=== PATIENT | male | born 1950 | race Caucasian/White ===

== ENCOUNTER 2020-12-25 09:19 | Emergency (ER) | payer BC ==
[~2020-12-25] VITALS: Ht 175.3 cm; Wt 78.1 kg
[~2020-12-25 09:19] MED LIST: ASPIRIN325 MG PO; CLOPIDOGREL75 MG PO; HUMALOG MI100 UNIT/2 SQ; LISINOPRIL10 MG PO; NOVOLOG MI100 UNIT/1 SQ; SIMVASTATIN80 MG PO; TRICOR145 MG PO; ULTRAM50 MG PO
[2020-12-25] MEDS ORDERED: SODIUM CHLORIDE 0.9% 1000ML 1,000 ML IV STA (09:24)
[2020-12-25] MEDS ORDERED: SODIUM CHLORIDE 0.9% 1000ML 1,000 ML ONE (09:50)
== END 2020-12-25 10:43 | disposition home or self-care (01) ==
LOC: FSED 09:27
DX: E87.5 Hyperkalemia (principal); N17.9 Acute kidney failure, unspecified; R94.31 Abnormal electrocardiogram [ECG] [EKG]; I25.10 Atherosclerotic heart disease of native coronary artery without angina pectoris; E78.00 Pure hypercholesterolemia, unspecified; I25.2 Old myocardial infarction
CPT/HCPCS: 80053; 85025; 93005; 99284; J7030

== ENCOUNTER → 2023-04-10 | Day surgery (SDC) | payer BC ==
[2023-04-10] VITALS (14 sets, daily range): BP systolic 127–160; BP diastolic 62–78; PULSE 46–56; RESP 11–48; TEMP 98.2; O2SAT 94–98
[~2023-04-10] VITALS: Ht 175.3 cm; Wt 77.1 kg
[~2023-04-10] MED LIST changes: +ALPRAZOLAM 0.5 MG TAB ONE; +ASPIRIN 325 MG TAB ONE; +ASPIRIN81 MG PO; +BIVALRIUDIN 250 MG/VIAL VIAL IV ONE; +DIPHENHYDRAMINE HCL 25 MG CAP ONE; +FENTANYL CITRATE/PF 100MCG/2 ML INJ ONE; +FLOMAX0.4 MG PO; +HEPARIN SOD (PORCINE) 1000 UNIT/ML 30ML ONE; +HEPARIN SOD/SOD CHLORIDE 2,000 ML ONE; +IOPAMIDOL 370 MG/ML 100 ML INFUS..BTL INJ ONE; +JARDIANCE25 MG; +LIDOCAINE HCL 2% LOCAL 20 ML VIAL ONE; +LIPITOR20 MG PO; +MIDAZOLAM HCL 2 MG/2 ML VIAL ONE; +NITROGLYCERIN/D5W 200 MCG/ML 250 ML ONE; +PANTOPRAZOLE SO40 MG PO; +PRASUGREL 10 MG TAB ONE; +RANOLAZINE ER1000 MG; +SODIUM CHLORIDE 0.9% 1000ML 1,000 ML ONE; +TOPROL XL50 MG PO; +VASCEPA1 GM; +VERAPAMIL HCL 2.5 MG/ML 2 ML VIAL ONE; +ZETIA10 MG PO
== END | disposition home or self-care (01) ==
LOC: CATH LAB 11:45
PROVIDERS: ATTEND Internal Medicine Interventional Cardiology
DX: I25.118 Atherosclerotic heart disease of native coronary artery with other forms of angina pectoris (principal); Z95.5 Presence of coronary angioplasty implant and graft; E78.2 Mixed hyperlipidemia; I73.9 Peripheral vascular disease, unspecified; I87.2 Venous insufficiency (chronic) (peripheral); R09.89 Other specified symptoms and signs involving the circulatory and respiratory systems; E11.59 Type 2 diabetes mellitus with other circulatory complications; Z88.8 Allergy status to other drugs, medicaments and biological substances; Z79.82 Long term (current) use of aspirin; Z79.899 Other long term (current) drug therapy; Z79.4 Long term (current) use of insulin; Z82.49 Family history of ischemic heart disease and other diseases of the circulatory system; Z83.3 Family history of diabetes mellitus
CPT/HCPCS: 92928; C1725; C1874; J0583; J1644; J2001; J2250; J3010; J7030; Q9967; 99152; 99153